=== PATIENT | male | born 1995 | race Hispanic/Latino ===

== ENCOUNTER 2021-06-08 11:32 | Emergency (ER) | payer SELFPAY ==
--- NOTE | 2021-06-08 14:22 | Emergency Department Report ---
ED General Adult HPI - General Chief complaint: Earache Stated complaint: EXTREME EAR PAIN/NO BALANCE Time Seen by Provider: 06/08/21 14:16 Source: patient Mode of arrival: Ambulatory Limitations: No Limitations - History of Present Illness Initial comments: 25-year-old male patient presents for complaints of left ear pain x1 year. Patient states his pain has been worsening over the past few days and he has had drainage out of the ear. He also states there is decreased hearing. He rates his pain as a 9/10 in severity. He denies any trauma to the ear, fever/chills/sweats, headaches, dizziness, or vision changes. Patient states he has not seen any providers for this ear pain since it began. No known drug allergies per patient or other past medical history - Related Data Previous Rx's Medication Instructions Recorded Last Taken Type Acetaminophen/Codeine [Tylenol 1 tab PO Q8H PRN #4 tab 06/08/21 Unknown Rx /Codeine # 3 tab] Amoxicillin/Potassium Clav 1 each PO BID 10 Days #20 tab 06/08/21 Unknown Rx [Augmentin 875-125 Tablet] Ibuprofen [Motrin 800 MG tab] 800 mg PO Q8HR PRN #20 tablet 06/08/21 Unknown Rx Ofloxacin 0.3% [Floxin 0.3% Otic] 10 drops OT QDAY 7 Days #1 bottle 06/08/21 Unknown Rx Allergies Allergy/AdvReac Type Severity Reaction Status Date / Time No Known Allergies Allergy Unverified 06/08/21 12:02 ED Review of Systems ROS: Stated complaint: EXTREME EAR PAIN/NO BALANCE Other details as noted in HPI Constitutional: denies: chills, diaphoresis, fever, malaise, weakness Eyes: denies: eye discharge, vision change ENT: ear pain. denies: throat pain Skin: denies: change in color Neurological: denies: headache, numbness, paresthesias ED Past Medical Hx - Medications Home Medications: Home Medications Medication Instructions Recorded Confirmed Last Taken Type Acetaminophen/Codeine [Tylenol 1 tab PO Q8H PRN #4 tab 06/08/21 Unknown Rx /Codeine # 3 tab] Amoxicillin/Potassium Clav 1 each PO BID 10 Days #20 tab 06/08/21 Unknown Rx [Augmentin 875-125 Tablet] Ibuprofen [Motrin 800 MG tab] 800 mg PO Q8HR PRN #20 tablet 06/08/21 Unknown Rx Ofloxacin 0.3% [Floxin 0.3% Otic] 10 drops OT QDAY 7 Days #1 bottle 06/08/21 Unknown Rx ED Physical Exam - General Limitations: No Limitations General appearance: alert, in no apparent distress - Head Head exam: Present: atraumatic, normocephalic - Eye Eye exam: Present: normal appearance - Expanded ENT Exam Expanded Ear exam: Present: normal external inspection TM/Canal exam: Effusion: Left TM, Canal Discharge: Left TM, Canal Tenderness: Left TM - Neck Neck exam: Present: normal inspection - Respiratory Respiratory exam: Present: normal lung sounds bilaterally. Absent: respiratory distress - Cardiovascular Cardiovascular Exam: Present: regular rate - Neurological Exam Neurological exam: Present: alert, oriented X3 - Psychiatric Psychiatric exam: Present: normal affect, normal mood - Skin Skin exam: Present: warm, dry, intact, normal color. Absent: rash ED Course Vital Signs 06/08/21 12:06 Temperature 98.3 F Pulse Rate 99 H Respiratory 20 Rate Blood Pressure 127/59 O2 Sat by Pulse 97 Oximetry ED Medical Decision Making - Medical Decision Making 25-year-old male patient presents for complaints of left ear pain x1 year. Patient states his pain has been worsening over the past few days and he has had drainage out of the ear. He also states there is decreased hearing. He rates his pain as a 9/10 in severity. He denies any trauma to the ear, fever/chills/sweats, headaches, dizziness, or vision changes. Patient states he has not seen any providers for this ear pain since it began. No known drug allergies per patient or other past medical history Left ear effusion noted with otitis sterna. Given duration of ear pain, I recommend patient follows up with ENT, referral provided. We will treat infection with oral and topical antibiotics. Strict return precautions were discussed in detail with patient who verbalized understanding Critical care attestation.: If time is entered above; I have spent that time in minutes in the direct care of this critically ill patient, excluding procedure time. ED Disposition Clinical Impression: Middle ear effusion, Otitis externa Disposition: HOME / SELF CARE / HOMELESS Is pt being admited?: No Condition: Stable Instructions: Otitis Externa, [id number] Prescriptions: Amoxicillin/Potassium Clav [Augmentin 875-125 Tablet] 1 each PO BID 10 Days #20 tab Ofloxacin 0.3% [Floxin 0.3% Otic] 10 drops OT QDAY 7 Days #1 bottle Ibuprofen [Motrin 800 MG tab] 800 mg PO Q8HR PRN #20 tablet PRN Reason: pain Acetaminophen/Codeine [Tylenol /Codeine # 3 tab] 1 tab PO Q8H PRN #4 tab PRN Reason: Pain , Severe (7-10) Referrals: [facility] [Provider Group] - 3-5 Days [facility] [Outside] - 3-5 Days SOFÍA MILLS MD [Staff Physician] - 3-5 Days (Chronic Ear paibn, middle ear effusion ) Forms: Accompanied Note
[2021-06-08 15:30] VITALS: BP 120/74
== END 2021-06-09 00:16 | disposition home or self-care (01) ==
LOC: ED 11:32
DX: H60.509 Unspecified acute noninfective otitis externa, unspecified ear (principal)
CPT/HCPCS: 99282